=== PATIENT | female | born 1965 ===

== ENCOUNTER 2023-08-31 17:18 | Inpatient (IN) | payer MEDICARE, MEDICAID, SELFPAY ==
[2023-08-31 17:40] VITALS: BP 123/67; PULSE 85; RESP 18; TEMP 36.3; O2SAT 99
[2023-08-31 19:11] VITALS: BMI 38.2
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
[2023-08-31] MEDS: Acetaminophen 325 MG TABLET 650 MG PO (21:10)
[2023-08-31] MEDS: OLANZapine 7.5 MG TABLET PO (21:10)
[2023-08-31] MEDS: Divalproex Sodium 500 MG TABLET.DR PO (21:10)
[2023-08-31] MEDS: Melatonin 3 MG TABLET 6 MG PO (21:10)
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
[2023-09-01 08:00] VITALS: BP 104/58; PULSE 72; RESP 18; TEMP 36.2; O2SAT 96
[2023-09-01] MEDS: Divalproex Sodium 500 MG TABLET.DR PO ×2 (08:50→21:10)
[2023-09-01] MEDS: Omeprazole 20 MG CAPSULE.DR PO (08:50)
[2023-09-01] MEDS: Acetaminophen 325 MG TABLET 650 MG PO (10:25)
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
--- NOTE | 2023-09-01 11:29 | MHC.CLN ---
NUTRITION PATIENT REPORTED DECREASED APPETITE. REPORTS WEIGHT HAD BEEN 216#, NOW 195#. WEIGHT LOSS -21#, 9.7%. UNSURE OF TIMEFRAME. BMI=38.2, OBESE. FOLLOW WEEKLY FOR INTAKE.
--- NOTE | 2023-09-01 12:01 | PC.NURSE ---
Patient is having mod-severe sciatica in her right leg not relived by Tylenol. Home med list reviewed and missing medication list sent to deonna Soni MAT INSPECTOR who will see patient later today.
[2023-09-01] MEDS: Ibuprofen 400 MG TABLET PO ×2 (13:12→21:13)
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
[2023-09-01 18:00] VITALS: BP 115/55; PULSE 84; RESP 18; TEMP 36.6; O2SAT 99
[2023-09-01] MEDS: Melatonin 3 MG TABLET 6 MG PO (21:11)
[2023-09-01] MEDS: OLANZapine 10 MG TABLET PO (21:11)
--- NOTE | 2023-09-01 21:35 | HO.PSYCHPN ---
Subjective Subjective Date of Service: 09/01/23 Reason For Visit: decompensation Diagnostics Vital Signs (24Hr): Vital Signs - 24 hr 09/01/23 08:00 09/01/23 18:00 Temperature 97.2 F 97.8 F Pulse Rate 72 84 Respiratory Rate 18 18 Blood Pressure 104/58 L 115/55 L Pulse Oximetry 96 99 Oxygen Delivery Method Room Air Room Air BMI result Body Mass Index 38.2 Medications Medications Current Medications Acetaminophen (Acetaminophen 325 Mg Tablet) 650 mg PO Q6H PRN PRN Reason: Headache/Pain Mild Scale (1-3) Last Admin: 09/01/23 10:25 Dose: 650 mg Al Hydroxide/Mg Hydroxide (Magnesium Hydrox/Alum Hydrox 30 Ml Oral.Susp) 30 ml PO Q6H PRN PRN Reason: Heartburn/Nausea Divalproex Sodium (Divalproex Sodium 500 Mg Tablet.) 500 mg PO BID [facility] Last Admin: 09/01/23 21:10 Dose: 500 mg Hydroxyzine HCl (Hydroxyzine Hcl 25 Mg Tablet) 25 mg PO Q6H PRN PRN Reason: Anxiety Ibuprofen (Ibuprofen 400 Mg Tablet) 400 mg PO Q6H PRN PRN Reason: Pain, Moderate(Pain Scale 4-6) Last Admin: 09/01/23 21:13 Dose: 400 mg Magnesium Hydroxide (Milk Of Magnesia 30 Ml Oral.Susp) 30 ml PO DAILY PRN PRN Reason: Constipation Melatonin (Melatonin 3 Mg Tablet) 6 mg PO BEDTIME PRN PRN Reason: insomnia Last Admin: 09/01/23 21:11 Dose: 6 mg Olanzapine (Olanzapine 2.5 Mg Tablet) 2.5 mg PO DAILY PRN PRN Reason: agitation Olanzapine (Olanzapine 10 Mg Tablet) 10 mg PO BEDTIME [facility] Last Admin: 09/01/23 21:11 Dose: 10 mg Omeprazole (Omeprazole 20 Mg Capsule.) 20 mg PO DAILY [facility] Last Admin: 09/01/23 08:50 Dose: 20 mg Trazodone HCl (Trazodone Hcl 50 Mg Tablet) 50 mg PO BEDTIME MRX1 PRN PRN Reason: Insomnia Allergies Allergies Allergy/AdvReac Type Severity Reaction Status Date / Time No Known Allergies Allergy Verified 08/31/23 17:55 Assessment & Plan Assessment & Plan (1) Schizo-affective psychosis: Status: Acute Code(s): F25.9 - Schizoaffective disorder, unspecified Plan 58 year old female with history of sciatica, GERD, anxiety, chronic back pain and Schizoaffective disorder here with decompensation of schizoaffective disorder Plan; CV 15 min checks continue zyprexa and increase to 10mg at bedtime stop risperdal 2mg BID(pt was not taking consistently at home) hold cogentin as may not need it labs med consult collect collateral discharge planning with team Time Spent With Patient Time: Total time managing care of this patient today ____ minutes.
[2023-09-02] MEDS: hydrOXYzine HCL 25 MG TABLET PO (04:03)
[2023-09-02 07:04] LABS: Estimated Average Glucose 100 mg/dL; Hemoglobin A1c % 5.1 % (<6.0)
[2023-09-02 07:14] LABS: Alanine Aminotransferase 24 U/L (0-31); Albumin Level 3.5 g/dL (3.5-5.0); Alkaline Phosphatase 62 U/L (39-117); Anion Gap 13 (12-20); Aspartate Amino Transferase 22 U/L (5-31); Bilirubin Total 0.2 mg/dL (0.0-1.0); Blood Urea Nitrogen 13 mg/dL (9-16); Carbon Dioxide 28 mmol/L (22-29); Chloride 109 mmol/L (96-108); Cholesterol 183 mg/dL (<200); Creatinine Clr Calc Pharmacy 83.6; Estimated Glomerular Filt Rate > 60; Glucose Fasting 86 mg/dL (60-99); HDL Cholesterol 54 mg/dL (>40); LDL Cholesterol Calculated 119 mg/dL (<100); Potassium 4.5 mmol/L (3.3-5.1); Sodium 145 mmol/L (135-145); Total Protein 6.5 g/dL (6.5-8.0); Triglycerides 53 mg/dL (<150)
[2023-09-02 08:00] VITALS: BP 135/67; PULSE 95; RESP 18; TEMP 36.7; O2SAT 97
[2023-09-02] MEDS: Omeprazole 20 MG CAPSULE.DR PO (08:35)
[2023-09-02] MEDS: Divalproex Sodium 500 MG TABLET.DR PO ×2 (08:36→20:26)
--- NOTE | 2023-09-02 10:52 | P.PNPSI_ITS ---
Subjective Subjective Date of Service: 09/02/23 Reason For Visit: decompensation Subjective Notes: Conditional Voluntary Interim History: met with patient. Discussed with Nursing. Pleasant. Interviewed with [facility] #[id number]. reports feeling comfortable on the unit and that staff are very helpful. Sleeping well. Denied depression. Denies feeling paranoid or scared. We discussed medications and names of same as she noted they were different compared to community. Aware she was in hospital, day of the week and being the around August. Medication Compliance: Yes Side effects from medications: No Attending Groups: Yes Review of Systems Acute medical concerns: No Medical Review of Systems: unchanged Review of Systems: Hospitalist note 08/31: presently has no acute medical issues, continue protonix for GERD, Motrin PRN for pain, and continue Present Psychiatric care. Will follow on PRN basis Review of Systems Review of Systems Unremarkable Mental Status Exam Mental Status Exam Patient Appearance: Well Grooomed and Appropriate Patient Orientation: Person, Time and Situation Level of Consciousness: Awake Patient Behavior: Appropriate and Good Eye Contact Mood Description: Calm Affect Description: Calm Patient Cognition Impaired: No Ability to Follow Directions: Good Speech Pattern: Clear Memory Description: Intact Hallucinations: None Delusions: Not Present Thought Process: Goal Oriented Thought Content: positive for Goal Oriented Judgement: Fair Diagnostics Vital Signs (24Hr): Vital Signs - 24 hr 09/01/23 18:00 09/02/23 08:00 Temperature 97.8 F 98.1 F Pulse Rate 84 95 Respiratory Rate 18 18 Blood Pressure 115/55 L 135/67 Pulse Oximetry 99 97 Oxygen Delivery Method Room Air Room Air BMI result Body Mass Index 38.2 Labs 09/02/23 06:43 Labs: Laboratory Results - last 48 hr 09/02/23 06:43 Sodium 145 Potassium 4.5 Chloride 109 H Carbon Dioxide 28 Anion Gap 13 BUN 13 Creatinine 0.71 Estim Creat Clear Calc 83.6 Estimated GFR > 60 Fasting Glucose 86 Estimat Average Glucose 100 Hemoglobin A1c % 5.1 Calcium 9.0 Total Bilirubin 0.2 AST 22 ALT 24 Alkaline Phosphatase 62 Total Protein 6.5 Albumin 3.5 Triglycerides 53 Cholesterol 183 LDL Cholesterol, Calc 119 H HDL Cholesterol 54 Medications Medications Current Medications Acetaminophen (Acetaminophen 325 Mg Tablet) 650 mg PO Q6H PRN PRN Reason: Headache/Pain Mild Scale (1-3) Last Admin: 09/01/23 10:25 Dose: 650 mg Al Hydroxide/Mg Hydroxide (Magnesium Hydrox/Alum Hydrox 30 Ml Oral.Susp) 30 ml PO Q6H PRN PRN Reason: Heartburn/Nausea Divalproex Sodium (Divalproex Sodium 500 Mg Tablet.Dr) 500 mg PO BID [facility] Last Admin: 09/02/23 08:36 Dose: 500 mg Hydroxyzine HCl (Hydroxyzine Hcl 25 Mg Tablet) 25 mg PO Q6H PRN PRN Reason: Anxiety Last Admin: 09/02/23 04:03 Dose: 25 mg Ibuprofen (Ibuprofen 400 Mg Tablet) 400 mg PO Q6H PRN PRN Reason: Pain, Moderate(Pain Scale 4-6) Last Admin: 09/01/23 21:13 Dose: 400 mg Magnesium Hydroxide (Milk Of Magnesia 30 Ml Oral.Susp) 30 ml PO DAILY PRN PRN Reason: Constipation Melatonin (Melatonin 3 Mg Tablet) 6 mg PO BEDTIME PRN PRN Reason: insomnia Last Admin: 09/01/23 21:11 Dose: 6 mg Olanzapine (Olanzapine 2.5 Mg Tablet) 2.5 mg PO DAILY PRN PRN Reason: agitation Olanzapine (Olanzapine 10 Mg Tablet) 10 mg PO BEDTIME [facility] Last Admin: 09/01/23 21:11 Dose: 10 mg Omeprazole (Omeprazole 20 Mg Capsule.) 20 mg PO DAILY [facility] Last Admin: 09/02/23 08:35 Dose: 20 mg Trazodone HCl (Trazodone Hcl 50 Mg Tablet) 50 mg PO BEDTIME MRX1 PRN PRN Reason: Insomnia Allergies Allergies Allergy/AdvReac Type Severity Reaction Status Date / Time No Known Allergies Allergy Verified 08/31/23 17:55 Assessment & Plan Assessment & Plan (1) Schizo-affective psychosis: Status: Acute Code(s): F25.9 - Schizoaffective disorder, unspecified Plan 58 year old female with history of sciatica, GERD, anxiety, chronic back pain and Schizoaffective disorder here with decompensation of schizoaffective disorder Plan; CV 15 min checks continue zyprexa and increase to 10mg at bedtime stop risperdal 2mg BID(pt was not taking consistently at home) hold cogentin as may not need it 09/01: no changes to current plan Reason for continued inpatient stay Substantial Risk for: harm to others Time Spent With Patient Time: Total time managing care of this patient today ____ minutes.
[2023-09-02] MEDS: Ibuprofen 400 MG TABLET PO ×2 (13:59→20:26)
[2023-09-02 18:00] VITALS: BP 125/57; PULSE 88; RESP 18; TEMP 36.3; O2SAT 95
[2023-09-02] MEDS: Melatonin 3 MG TABLET 6 MG PO (20:25)
[2023-09-02] MEDS: OLANZapine 10 MG TABLET PO (20:26)
[2023-09-02] MEDS: traZODone HCL 50 MG TABLET PO (20:26)
[2023-09-03] MEDS: Omeprazole 20 MG CAPSULE.DR PO (08:41)
[2023-09-03] MEDS: Divalproex Sodium 500 MG TABLET.DR PO ×2 (08:41→21:06)
[2023-09-03 08:42] VITALS: BP 141/56; PULSE 99; RESP 18; TEMP 36.4; O2SAT 94
[2023-09-03] MEDS: Ibuprofen 400 MG TABLET PO (09:56)
--- NOTE | 2023-09-03 14:09 | HO.PSYCHPN ---
Subjective Subjective Date of Service: 09/03/23 Reason For Visit: decompensation Subjective Notes: Conditional Voluntary Interim History: met with patient. Discussed with Nursing. Pleasant. No issues. [facility] #[id number]. Still comfortable on the unit and that staff are very helpful. Sleeping well. Denied depression. Denies feeling paranoid or scared. No overt cognitive issues. Unsure what she will do if she is unable to stay with family maybe i will get a job or something . Medication Compliance: Yes Side effects from medications: No Attending Groups: Yes Review of Systems Acute medical concerns: No Review of Systems Review of Systems Unremarkable Mental Status Exam Mental Status Exam Patient Appearance: Well Grooomed and Appropriate Patient Orientation: Person, Time and Situation Level of Consciousness: Awake Patient Behavior: Appropriate and Good Eye Contact Mood Description: Calm Affect Description: Calm Patient Cognition Impaired: No Ability to Follow Directions: Good Speech Pattern: Clear Memory Description: Intact Diagnostics Vital Signs (24Hr): Vital Signs - 24 hr 09/02/23 18:00 09/03/23 08:42 Temperature 97.4 F 97.5 F Pulse Rate 88 99 Respiratory Rate 18 18 Blood Pressure 125/57 L 141/56 H Pulse Oximetry 95 94 Oxygen Delivery Method Room Air Room Air BMI result Body Mass Index 38.2 Labs 09/02/23 06:43 Labs: Laboratory Results - last 48 hr 09/02/23 06:43 Sodium 145 Potassium 4.5 Chloride 109 H Carbon Dioxide 28 Anion Gap 13 BUN 13 Creatinine 0.71 Estim Creat Clear Calc 83.6 Estimated GFR > 60 Fasting Glucose 86 Estimat Average Glucose 100 Hemoglobin A1c % 5.1 Calcium 9.0 Total Bilirubin 0.2 AST 22 ALT 24 Alkaline Phosphatase 62 Total Protein 6.5 Albumin 3.5 Triglycerides 53 Cholesterol 183 LDL Cholesterol, Calc 119 H HDL Cholesterol 54 Medications Medications Current Medications Acetaminophen (Acetaminophen 325 Mg Tablet) 650 mg PO Q6H PRN PRN Reason: Headache/Pain Mild Scale (1-3) Last Admin: 09/01/23 10:25 Dose: 650 mg Al Hydroxide/Mg Hydroxide (Magnesium Hydrox/Alum Hydrox 30 Ml Oral.Susp) 30 ml PO Q6H PRN PRN Reason: Heartburn/Nausea Divalproex Sodium (Divalproex Sodium 500 Mg Tablet.) 500 mg PO BID [facility] Last Admin: 09/03/23 08:41 Dose: 500 mg Hydroxyzine HCl (Hydroxyzine Hcl 25 Mg Tablet) 25 mg PO Q6H PRN PRN Reason: Anxiety Last Admin: 09/02/23 04:03 Dose: 25 mg Ibuprofen (Ibuprofen 400 Mg Tablet) 400 mg PO Q6H PRN PRN Reason: Pain, Moderate(Pain Scale 4-6) Last Admin: 09/03/23 09:56 Dose: 400 mg Magnesium Hydroxide (Milk Of Magnesia 30 Ml Oral.Susp) 30 ml PO DAILY PRN PRN Reason: Constipation Melatonin (Melatonin 3 Mg Tablet) 6 mg PO BEDTIME PRN PRN Reason: insomnia Last Admin: 09/02/23 20:25 Dose: 6 mg Olanzapine (Olanzapine 2.5 Mg Tablet) 2.5 mg PO DAILY PRN PRN Reason: agitation Olanzapine (Olanzapine 10 Mg Tablet) 10 mg PO BEDTIME [facility] Last Admin: 09/02/23 20:26 Dose: 10 mg Omeprazole (Omeprazole 20 Mg Capsule.Dr) 20 mg PO DAILY [facility] Last Admin: 09/03/23 08:41 Dose: 20 mg Trazodone HCl (Trazodone Hcl 50 Mg Tablet) 50 mg PO BEDTIME MRX1 PRN PRN Reason: Insomnia Last Admin: 09/02/23 20:26 Dose: 50 mg Allergies Allergies Allergy/AdvReac Type Severity Reaction Status Date / Time No Known Allergies Allergy Verified 08/31/23 17:55 Assessment & Plan Assessment & Plan (1) Schizo-affective psychosis: Status: Acute Code(s): F25.9 - Schizoaffective disorder, unspecified Plan 58 year old female with history of sciatica, GERD, anxiety, chronic back pain and Schizoaffective disorder here with decompensation of schizoaffective disorder Plan; CV 15 min checks continue zyprexa and increase to 10mg at bedtime stop risperdal 2mg BID(pt was not taking consistently at home) hold cogentin as may not need it 09/01: no changes to current plan 09/02: stable. no changes. Team to clarify supports and dispo options Reason for continued inpatient stay Substantial Risk for: rapid decompensation Time Spent With Patient Time: Total time managing care of this patient today ____ minutes.
[2023-09-03 18:00] VITALS: BP 138/80; PULSE 88; RESP 18; TEMP 36.2; O2SAT 97
[2023-09-03] MEDS: OLANZapine 10 MG TABLET PO (21:06)
[2023-09-04 08:00] VITALS: BP 135/58; PULSE 108; RESP 18; TEMP 35.9; O2SAT 98
[2023-09-04] MEDS: Ibuprofen 400 MG TABLET PO ×2 (08:36→18:49)
[2023-09-04] MEDS: Divalproex Sodium 500 MG TABLET.DR PO ×2 (08:36→20:30)
[2023-09-04] MEDS: Omeprazole 20 MG CAPSULE.DR PO (08:36)
--- NOTE | 2023-09-04 10:15 | HO.PSYCHPN ---
Subjective Subjective Date of Service: 09/04/23 Reason For Visit: decompensation Subjective Notes: Conditional Voluntary Interim History: met with patient. Discussed with Nursing. Pleasant. No issues. Pt remains calm and in good behavioral control; no side effects; Sleeping betterl. Denied depression. Denies feeling paranoid or scared. No overt cognitive issues. Medication Compliance: Yes Side effects from medications: No Attending Groups: Intermittent Review of Systems Acute medical concerns: No Review of Systems Review of Systems Unremarkable Yes all other systems are reviewed and are negative Mental Status Exam Mental Status Exam Patient Appearance: Well Grooomed and Appropriate Patient Orientation: Person, Time and Situation Level of Consciousness: Awake Patient Behavior: Appropriate and Good Eye Contact Mood Description: Calm Affect Description: Calm Patient Cognition Impaired: No Ability to Follow Directions: Good Speech Pattern: Clear Memory Description: Intact Hallucinations: None Delusions: Not Present Thought Process: Intact and Goal Oriented Thought Content: positive for Intact and positive for Goal Oriented Judgement: Fair Diagnostics Vital Signs (24Hr): Vital Signs - 24 hr 09/03/23 18:00 09/04/23 08:00 Temperature 97.2 F 96.6 F L Pulse Rate 88 108 H Respiratory Rate 18 18 Blood Pressure 138/80 135/58 L Pulse Oximetry 97 98 Oxygen Delivery Method Room Air Room Air BMI result Body Mass Index 38.2 Labs 09/02/23 06:43 Medications Medications Current Medications Acetaminophen (Acetaminophen 325 Mg Tablet) 650 mg PO Q6H PRN PRN Reason: Headache/Pain Mild Scale (1-3) Last Admin: 09/01/23 10:25 Dose: 650 mg Al Hydroxide/Mg Hydroxide (Magnesium Hydrox/Alum Hydrox 30 Ml Oral.Susp) 30 ml PO Q6H PRN PRN Reason: Heartburn/Nausea Divalproex Sodium (Divalproex Sodium 500 Mg Tablet.Dr) 500 mg PO BID [facility] Last Admin: 09/04/23 08:36 Dose: 500 mg Hydroxyzine HCl (Hydroxyzine Hcl 25 Mg Tablet) 25 mg PO Q6H PRN PRN Reason: Anxiety Last Admin: 09/02/23 04:03 Dose: 25 mg Ibuprofen (Ibuprofen 400 Mg Tablet) 400 mg PO Q6H PRN PRN Reason: Pain, Moderate(Pain Scale 4-6) Last Admin: 09/04/23 08:36 Dose: 400 mg Magnesium Hydroxide (Milk Of Magnesia 30 Ml Oral.Susp) 30 ml PO DAILY PRN PRN Reason: Constipation Melatonin (Melatonin 3 Mg Tablet) 6 mg PO BEDTIME PRN PRN Reason: insomnia Last Admin: 09/02/23 20:25 Dose: 6 mg Olanzapine (Olanzapine 2.5 Mg Tablet) 2.5 mg PO DAILY PRN PRN Reason: agitation Olanzapine (Olanzapine 10 Mg Tablet) 10 mg PO BEDTIME [facility] Last Admin: 09/03/23 21:06 Dose: 10 mg Omeprazole (Omeprazole 20 Mg Capsule.Dr) 20 mg PO DAILY [facility] Last Admin: 09/04/23 08:36 Dose: 20 mg Trazodone HCl (Trazodone Hcl 50 Mg Tablet) 50 mg PO BEDTIME MRX1 PRN PRN Reason: Insomnia Last Admin: 09/02/23 20:26 Dose: 50 mg Allergies Allergies Allergy/AdvReac Type Severity Reaction Status Date / Time No Known Allergies Allergy Verified 08/31/23 17:55 Assessment & Plan Assessment & Plan (1) Schizo-affective psychosis: Status: Acute Code(s): F25.9 - Schizoaffective disorder, unspecified Plan 58 year old female with history of sciatica, GERD, anxiety, chronic back pain and Schizoaffective disorder here with decompensation of schizoaffective disorder Plan; CV 15 min checks continue zyprexa and increase to 10mg at bedtime stop risperdal 2mg BID(pt was not taking consistently at home) hold cogentin as may not need it 09/01: no changes to current plan 09/02: stable. no changes. Team to clarify supports and dispo options 09/03 continue medications depakote level and CMP in am continue to work on discharge planning with team Patient educated on: diagnosis, medication risk/benefits and therapeutic strategies Informed Consent: understands and further education needed Reason for continued inpatient stay Substantial Risk for: harm to self, inability to function and rapid decompensation Time Spent With Patient Time: Total time managing care of this patient today ____ minutes.
[2023-09-04 18:00] VITALS: BP 123/66; PULSE 95; RESP 18; TEMP 36.4; O2SAT 98
[2023-09-04] MEDS: OLANZapine 10 MG TABLET PO (20:30)
[2023-09-05 07:40] VITALS: BP 129/79; PULSE 98; RESP 18; TEMP 36.6; O2SAT 96
[2023-09-05 07:52] LABS: Alanine Aminotransferase 18 U/L (0-31); Alkaline Phosphatase 70 U/L (39-117); Anion Gap 14 (12-20); Aspartate Amino Transferase 17 U/L (5-31); Bilirubin Total 0.4 mg/dL (0.0-1.0); Blood Urea Nitrogen 21 mg/dL (9-16); Calcium 9.4 mg/dL (8.4-10.2); Carbon Dioxide 30 mmol/L (22-29); Chloride 106 mmol/L (96-108); Estimated Glomerular Filt Rate > 60; Glucose Fasting 96 mg/dL (60-99); Potassium 4.7 mmol/L (3.3-5.1); Sodium 145 mmol/L (135-145); Total Protein 7.3 g/dL (6.5-8.0)
[2023-09-05 07:53] LABS: Valproate 70.9 mcg/mL (50.0-100.0)
[2023-09-05] MEDS: Ibuprofen 400 MG TABLET PO ×2 (08:34→21:32)
[2023-09-05] MEDS: Omeprazole 20 MG CAPSULE.DR PO (08:38)
[2023-09-05] MEDS: Divalproex Sodium 500 MG TABLET.DR PO ×2 (08:38→22:38)
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
--- NOTE | 2023-09-05 12:30 | PC.NURSE ---
Both 0900 medications did not scan in at time of administration at 0833 but were both given at that time, Depakote and Omeprazole.
--- NOTE | 2023-09-05 12:33 | PC.NURSE ---
Cathy Soni IRRIGATION SPECIALIST updated by this selling underwriter that patient is having intermittent left sided facial numbness and bilateral leg sciatica pain today. Vital signs are stable, hand grasps are equal, no facial dropping or speech difficulties. Patient ambulating independently on the unit with a steady gait. Motrin given prn for sciatica with good effect.
--- NOTE | 2023-09-05 16:01 | PC.NURSE ---
New order for Gabapentin 100mg PO bid obtained for patient to help with neuropathy.
[2023-09-05 18:00] VITALS: BP 120/66; PULSE 99; RESP 18; TEMP 36.8; O2SAT 99
[2023-09-05] MEDS: Gabapentin 100 MG CAPSULE PO (21:30)
[2023-09-05] MEDS: Melatonin 3 MG TABLET 6 MG PO (21:31)
[2023-09-05] MEDS: traZODone HCL 50 MG TABLET PO (21:31)
[2023-09-05] MEDS: OLANZapine 10 MG TABLET PO (21:32)
[2023-09-06 06:00] VITALS: BP 135/71; PULSE 96; RESP 17; TEMP 36.2; O2SAT 96
[2023-09-06] MEDS: Omeprazole 20 MG CAPSULE.DR PO (07:56)
[2023-09-06] MEDS: Divalproex Sodium 500 MG TABLET.DR PO ×2 (07:56→20:20)
[2023-09-06] MEDS: Gabapentin 100 MG CAPSULE PO ×2 (07:56→20:20)
[2023-09-06] MEDS: Ibuprofen 400 MG TABLET PO ×3 (07:57→22:30)
--- NOTE | 2023-09-06 12:02 | HO.PSYCHPN ---
Subjective Subjective Date of Service: 09/06/23 Reason For Visit: decompensation Subjective Notes: Conditional Voluntary Interim History: Reviewed with . active on [employer]. 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 Pt reports feeling good today; pt stated, I feel like I'm ready to go home. I'm not depressed. I'm sleeping and eating okay . denies SI/HI/VH/AH. Pt reports she will reach out to nursing staff if she needs anything. Medication Compliance: Yes Side effects from medications: No Review of Systems Constitutional: Reports as per HPI Eyes: Reports as per HPI Reports as per HPI Cardiovascular: Reports as per HPI Respiratory: Reports as per HPI Gastrointestinal: Reports as per HPI Genitourinary: Reports as per HPI Musculoskeletal: Reports as per HPI Skin/Breast: Reports as per HPI Reports as per HPI Psychiatric: Reports as per HPI Endocrine: Reports as per HPI Hematologic/Lymphatic: Reports as per HPI Allergic/Immunologic: Reports as per HPI Mental Status Exam Mental Status Exam Narrative: Pt is alert and oriented; behavior is cooperative, friendly and calm; dressed in casual attire; mood is described as good ; eye contact appropriate; Speech is normal rate, volume and prosody and not pressured; thought process is organized; Thought content is on discharge; denies SI/HI/VH/AH. Diagnostics Vital Signs (24Hr): Vital Signs - 24 hr 09/05/23 18:00 09/06/23 06:00 Temperature 98.2 F 97.2 F Pulse Rate 99 96 Respiratory Rate 18 17 Blood Pressure 120/66 135/71 Pulse Oximetry 99 96 Oxygen Delivery Method Room Air Room Air BMI result Body Mass Index 38.2 Labs 09/05/23 07:16 Labs: Laboratory Results - last 48 hr 09/05/23 07:16 Sodium 145 Potassium 4.7 Chloride 106 Carbon Dioxide 30 H Anion Gap 14 BUN 21 H Creatinine 0.78 Estim Creat Clear Calc 76.0 Estimated GFR > 60 Fasting Glucose 96 Calcium 9.4 Total Bilirubin 0.4 AST 17 ALT 18 Alkaline Phosphatase 70 Total Protein 7.3 Albumin 4.0 Valproic Acid 70.9 Medications Medications Current Medications Acetaminophen (Acetaminophen 325 Mg Tablet) 650 mg PO Q6H PRN PRN Reason: Headache/Pain Mild Scale (1-3) Last Admin: 09/01/23 10:25 Dose: 650 mg Al Hydroxide/Mg Hydroxide (Magnesium Hydrox/Alum Hydrox 30 Ml Oral.Susp) 30 ml PO Q6H PRN PRN Reason: Heartburn/Nausea Divalproex Sodium (Divalproex Sodium 500 Mg Tablet.) 500 mg PO BID [facility] Last Admin: 09/06/23 07:56 Dose: 500 mg Gabapentin (Gabapentin 100 Mg Capsule) 100 mg PO BID [facility] Last Admin: 09/06/23 07:56 Dose: 100 mg Hydroxyzine HCl (Hydroxyzine Hcl 25 Mg Tablet) 25 mg PO Q6H PRN PRN Reason: Anxiety Last Admin: 09/02/23 04:03 Dose: 25 mg Ibuprofen (Ibuprofen 400 Mg Tablet) 400 mg PO Q6H PRN PRN Reason: Pain, Moderate(Pain Scale 4-6) Last Admin: 09/06/23 07:57 Dose: 400 mg Magnesium Hydroxide (Milk Of Magnesia 30 Ml Oral.Susp) 30 ml PO DAILY PRN PRN Reason: Constipation Melatonin (Melatonin 3 Mg Tablet) 6 mg PO BEDTIME PRN PRN Reason: insomnia Last Admin: 09/05/23 21:31 Dose: 6 mg Olanzapine (Olanzapine 2.5 Mg Tablet) 2.5 mg PO DAILY PRN PRN Reason: agitation Olanzapine (Olanzapine 10 Mg Tablet) 10 mg PO BEDTIME [facility] Last Admin: 09/05/23 21:32 Dose: 10 mg Omeprazole (Omeprazole 20 Mg Capsule.) 20 mg PO DAILY [facility] Last Admin: 09/06/23 07:56 Dose: 20 mg Trazodone HCl (Trazodone Hcl 50 Mg Tablet) 50 mg PO BEDTIME MRX1 PRN PRN Reason: Insomnia Last Admin: 09/05/23 21:31 Dose: 50 mg Allergies Allergies Allergy/AdvReac Type Severity Reaction Status Date / Time No Known Allergies Allergy Verified 08/31/23 17:55 Assessment & Plan Assessment & Plan (1) Schizo-affective psychosis: Status: Acute Code(s): F25.9 - Schizoaffective disorder, unspecified Plan 58 year old female with history of sciatica, GERD, anxiety, chronic back pain and Schizoaffective disorder here with decompensation of schizoaffective disorder Plan; CV 15 min checks continue zyprexa and increase to 10mg at bedtime stop risperdal 2mg BID(pt was not taking consistently at home) hold cogentin as may not need it 09/01: no changes to current plan 3/10: stable. no changes. Team to clarify supports and dispo options 09/03 continue medications depakote level and CMP in am continue to work on discharge planning with team 09/05/23 add gabapentin for both anxiety and pain 09/05: continue current tx plan. Patient educated on: diagnosis and medication risk/benefits Informed Consent: understands Reason for continued inpatient stay Substantial Risk for: med/psych decompensation Time Spent With Patient Time: Total time managing care of this patient today _20___ minutes.
--- NOTE | 2023-09-06 14:16 | MHC.CLN ---
F/U APPEARS TO BE EATING WELL WITH INTAKE USUALLY >50% OF MEALS. NO NUTRITIONAL FOLLOW UP. RD AVAILABLE NEEDED.
[2023-09-06 18:00] VITALS: BP 124/53; PULSE 92; RESP 18; TEMP 36.1; O2SAT 97
[2023-09-06] MEDS: guaiFENesin 100 MG/5 ML LIQUID PO (18:50)
[2023-09-06] MEDS: OLANZapine 10 MG TABLET PO (20:20)
[2023-09-06] MEDS: traZODone HCL 50 MG TABLET PO (20:20)
[2023-09-06] MEDS: Melatonin 3 MG TABLET 6 MG PO (22:29)
[2023-09-07] MEDS: guaiFENesin 100 MG/5 ML LIQUID PO ×2 (05:38→21:21)
[2023-09-07 07:00] VITALS: BMI 39.8
[2023-09-07 07:45] VITALS: BP 130/70; PULSE 86; RESP 16; TEMP 36.6; O2SAT 98
[2023-09-07] MEDS: Divalproex Sodium 500 MG TABLET.DR PO ×2 (08:09→21:23)
[2023-09-07] MEDS: Omeprazole 20 MG CAPSULE.DR PO (08:09)
[2023-09-07] MEDS: Gabapentin 100 MG CAPSULE PO ×2 (08:09→21:23)
--- NOTE | 2023-09-07 12:59 | HO.PSYCHPN ---
Subjective Subjective Date of Service: 09/07/23 Reason For Visit: decompensation Subjective Notes: Conditional Voluntary Interim History: Reviewed with . active on [employer]. 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 Pt reports feeling good today; pt stated, I feel at peace. I feel like I'm ready to go home . denies SI/HI/VH/AH. Medication Compliance: Yes Side effects from medications: No Review of Systems Constitutional: Reports as per HPI Eyes: Reports as per HPI Reports as per HPI Cardiovascular: Reports as per HPI Respiratory: Reports as per HPI Gastrointestinal: Reports as per HPI Musculoskeletal: Reports as per HPI Skin/Breast: Reports as per HPI Reports as per HPI Psychiatric: Reports as per HPI Endocrine: Reports as per HPI Hematologic/Lymphatic: Reports as per HPI Allergic/Immunologic: Reports as per HPI Mental Status Exam Mental Status Exam Narrative: Pt is alert and oriented; behavior is cooperative, friendly and calm; dressed in casual attire; mood is described as good ; eye contact appropriate; Speech is normal rate, volume and prosody and not pressured; thought process is organized; Thought content is on discharge; denies SI/HI/VH/AH. Diagnostics Vital Signs (24Hr): Vital Signs - 24 hr 09/06/23 18:00 09/07/23 07:45 Temperature 97 F 97.8 F Pulse Rate 92 86 Respiratory Rate 18 16 Blood Pressure 124/53 L 130/70 Pulse Oximetry 97 98 Oxygen Delivery Method Room Air Room Air BMI result Body Mass Index 39.8 Labs 09/05/23 07:16 Medications Medications Current Medications Acetaminophen (Acetaminophen 325 Mg Tablet) 650 mg PO Q6H PRN PRN Reason: Headache/Pain Mild Scale (1-3) Last Admin: 09/01/23 10:25 Dose: 650 mg Al Hydroxide/Mg Hydroxide (Magnesium Hydrox/Alum Hydrox 30 Ml Oral.Susp) 30 ml PO Q6H PRN PRN Reason: Heartburn/Nausea Divalproex Sodium (Divalproex Sodium 500 Mg Tablet.) 500 mg PO BID [facility] Last Admin: 09/07/23 08:09 Dose: 500 mg Gabapentin (Gabapentin 100 Mg Capsule) 100 mg PO BID [facility] Last Admin: 09/07/23 08:09 Dose: 100 mg Guaifenesin (Guaifenesin 100 Mg/5 Ml Liquid) 5 ml PO Q4H PRN PRN Reason: cough Last Admin: 09/07/23 05:38 Dose: 5 ml Hydroxyzine HCl (Hydroxyzine Hcl 25 Mg Tablet) 25 mg PO Q6H PRN PRN Reason: Anxiety Last Admin: 09/02/23 04:03 Dose: 25 mg Ibuprofen (Ibuprofen 400 Mg Tablet) 400 mg PO Q6H PRN PRN Reason: Pain, Moderate(Pain Scale 4-6) Last Admin: 09/06/23 22:30 Dose: 400 mg Magnesium Hydroxide (Milk Of Magnesia 30 Ml Oral.Susp) 30 ml PO DAILY PRN PRN Reason: Constipation Melatonin (Melatonin 3 Mg Tablet) 6 mg PO BEDTIME PRN PRN Reason: insomnia Last Admin: 09/06/23 22:29 Dose: 6 mg Olanzapine (Olanzapine 2.5 Mg Tablet) 2.5 mg PO DAILY PRN PRN Reason: agitation Olanzapine (Olanzapine 10 Mg Tablet) 10 mg PO BEDTIME [facility] Last Admin: 09/06/23 20:20 Dose: 10 mg Omeprazole (Omeprazole 20 Mg Capsule.Dr) 20 mg PO DAILY [facility] Last Admin: 09/07/23 08:09 Dose: 20 mg Trazodone HCl (Trazodone Hcl 50 Mg Tablet) 50 mg PO BEDTIME MRX1 PRN PRN Reason: Insomnia Last Admin: 09/06/23 20:20 Dose: 50 mg Allergies Allergies Allergy/AdvReac Type Severity Reaction Status Date / Time No Known Allergies Allergy Verified 08/31/23 17:55 Assessment & Plan Assessment & Plan (1) Schizo-affective psychosis: Status: Acute Code(s): F25.9 - Schizoaffective disorder, unspecified Plan 58 year old female with history of sciatica, GERD, anxiety, chronic back pain and Schizoaffective disorder here with decompensation of schizoaffective disorder Plan; CV 15 min checks continue zyprexa and increase to 10mg at bedtime stop risperdal 2mg BID(pt was not taking consistently at home) hold cogentin as may not need it 09/01: no changes to current plan 09/02: stable. no changes. Team to clarify supports and dispo options 09/03 continue medications depakote level and CMP in am continue to work on discharge planning with team 09/05/23 add gabapentin for both anxiety and pain 09/05: continue current tx plan. 03/14: continue tx plan. Patient educated on: diagnosis and medication risk/benefits Informed Consent: understands Reason for continued inpatient stay Substantial Risk for: med/psych decompensation Time Spent With Patient Time: Total time managing care of this patient today _20___ minutes.
[2023-09-07 18:00] VITALS: BP 140/97; PULSE 95; RESP 18; TEMP 36.5; O2SAT 96
[2023-09-07] MEDS: Ibuprofen 400 MG TABLET PO (21:21)
[2023-09-07] MEDS: Melatonin 3 MG TABLET 6 MG PO (21:22)
[2023-09-07] MEDS: traZODone HCL 50 MG TABLET PO (21:23)
[2023-09-07] MEDS: OLANZapine 10 MG TABLET PO (21:23)
[2023-09-08 09:45] VITALS: BP 139/66; PULSE 100; RESP 16; TEMP 36.4; O2SAT 93
[2023-09-08] MEDS: Omeprazole 20 MG CAPSULE.DR PO (09:47)
[2023-09-08] MEDS: Divalproex Sodium 500 MG TABLET.DR PO ×2 (09:47→20:55)
[2023-09-08] MEDS: Ibuprofen 400 MG TABLET PO (09:47)
[2023-09-08] MEDS: Gabapentin 100 MG CAPSULE PO (09:47)
--- NOTE | 2023-09-08 16:27 | HO.PSYCHPN ---
Subjective Subjective Date of Service: 09/08/23 Reason For Visit: decompensation Subjective Notes: Conditional Voluntary Interim History: Pt reports sciatic pain- reports minimal effect with gabapentin- we discussed increasing dose. Also discussed for break through pain use toradol temporarily. She denies SI/HI. She reports her mood is better. No psychosis. She is looking forward to return home soon. Pt may benefit from aricept to slow down progression of dementia. Review of Systems Review of Systems Unremarkable Yes all other systems are reviewed and are negative Constitutional: Reports as per HPI Eyes: Reports as per HPI Reports as per HPI Cardiovascular: Reports as per HPI Respiratory: Reports as per HPI Gastrointestinal: Reports as per HPI Musculoskeletal: Reports as per HPI Skin/Breast: Reports as per HPI Reports as per HPI Psychiatric: Reports as per HPI Endocrine: Reports as per HPI Hematologic/Lymphatic: Reports as per HPI Allergic/Immunologic: Reports as per HPI Mental Status Exam Mental Status Exam Patient Appearance: Well Grooomed and Appropriate Patient Orientation: Person, Time and Situation Level of Consciousness: Awake Patient Behavior: Appropriate and Good Eye Contact Mood Description: Calm Affect Description: Calm Patient Cognition Impaired: No Ability to Follow Directions: Good Speech Pattern: Clear Memory Description: Intact Diagnostics Vital Signs (24Hr): Vital Signs - 24 hr 09/07/23 18:00 09/08/23 09:45 Temperature 97.7 F 97.5 F Pulse Rate 95 100 Respiratory Rate 18 16 Blood Pressure 140/97 H 139/66 Pulse Oximetry 96 93 Oxygen Delivery Method Room Air Room Air BMI result Body Mass Index 39.8 Labs 09/05/23 07:16 Medications Medications Current Medications Acetaminophen (Acetaminophen 325 Mg Tablet) 650 mg PO Q6H PRN PRN Reason: Headache/Pain Mild Scale (1-3) Last Admin: 09/01/23 10:25 Dose: 650 mg Al Hydroxide/Mg Hydroxide (Magnesium Hydrox/Alum Hydrox 30 Ml Oral.Susp) 30 ml PO Q6H PRN PRN Reason: Heartburn/Nausea Divalproex Sodium (Divalproex Sodium 500 Mg Tablet.Dr) 500 mg PO BID [facility] Last Admin: 09/08/23 09:47 Dose: 500 mg Gabapentin (Gabapentin 100 Mg Capsule) 200 mg PO TID [facility] Guaifenesin (Guaifenesin 100 Mg/5 Ml Liquid) 5 ml PO Q4H PRN PRN Reason: cough Last Admin: 09/07/23 21:21 Dose: 5 ml Hydroxyzine HCl (Hydroxyzine Hcl 25 Mg Tablet) 25 mg PO Q6H PRN PRN Reason: Anxiety Last Admin: 09/02/23 04:03 Dose: 25 mg Ketorolac Tromethamine (Ketorolac Tromethamine 15 Mg/Ml Vial) 15 mg IM Q6H PRN PRN Reason: sciatic pain Magnesium Hydroxide (Milk Of Magnesia 30 Ml Oral.Susp) 30 ml PO DAILY PRN PRN Reason: Constipation Melatonin (Melatonin 3 Mg Tablet) 6 mg PO BEDTIME PRN PRN Reason: insomnia Last Admin: 09/07/23 21:22 Dose: 6 mg Olanzapine (Olanzapine 2.5 Mg Tablet) 2.5 mg PO DAILY PRN PRN Reason: agitation Olanzapine (Olanzapine 10 Mg Tablet) 10 mg PO BEDTIME [facility] Last Admin: 09/07/23 21:23 Dose: 10 mg Omeprazole (Omeprazole 20 Mg Capsule.Dr) 20 mg PO DAILY [facility] Last Admin: 09/08/23 09:47 Dose: 20 mg Trazodone HCl (Trazodone Hcl 50 Mg Tablet) 50 mg PO BEDTIME MRX1 PRN PRN Reason: Insomnia Last Admin: 09/07/23 21:23 Dose: 50 mg Allergies Allergies Allergy/AdvReac Type Severity Reaction Status Date / Time No Known Allergies Allergy Verified 08/31/23 17:55 Assessment & Plan Assessment & Plan (1) Schizo-affective psychosis: Status: Acute Code(s): F25.9 - Schizoaffective disorder, unspecified Plan 58 year old female with history of sciatica, GERD, anxiety, chronic back pain and Schizoaffective disorder here with decompensation of schizoaffective disorder Plan; CV 15 min checks continue zyprexa and increase to 10mg at bedtime stop risperdal 2mg BID(pt was not taking consistently at home) hold cogentin as may not need it 09/01: no changes to current plan 09/02: stable. no changes. Team to clarify supports and dispo options 09/03 continue medications depakote level and CMP in am continue to work on discharge planning with team 09/05/23 add gabapentin for both anxiety and pain 09/05: continue current tx plan. 09/06: continue tx plan. 09/07 continue tx. toradol 15mg q6h IM. increase gabapentin 200mg po TID. d/c ibuprofen, since starting short term toradol. may benefit from aricept to slow down progression of dementia. Reason for continued inpatient stay Substantial Risk for: inability to function Time Spent With Patient Time: Total time managing care of this patient today ____ minutes.
[2023-09-08] MEDS: Ketorolac Tromethamine 15 MG/ML VIAL IM (20:52)
[2023-09-08] MEDS: Donepezil HCl 5 MG TABLET PO (20:55)
[2023-09-08] MEDS: Gabapentin 100 MG CAPSULE 200 MG PO (20:55)
[2023-09-08] MEDS: OLANZapine 10 MG TABLET PO (20:55)
[2023-09-08] MEDS: traZODone HCL 50 MG TABLET PO (20:55)
[2023-09-08 21:27] VITALS: BP 133/66; PULSE 89; RESP 16; TEMP 36.2; O2SAT 95
[2023-09-09 08:00] VITALS: BP 122/76; PULSE 93; RESP 18; TEMP 36.2; O2SAT 97
[2023-09-09] MEDS: Gabapentin 100 MG CAPSULE 200 MG PO ×3 (08:26→20:18)
[2023-09-09] MEDS: Omeprazole 20 MG CAPSULE.DR PO (08:27)
[2023-09-09] MEDS: Divalproex Sodium 500 MG TABLET.DR PO ×2 (08:27→20:18)
--- NOTE | 2023-09-09 10:45 | P.PNPSI_ITS ---
Subjective Subjective Date of Service: 09/09/23 Reason For Visit: decompensation Subjective Notes: Conditional Voluntary Interim History: Pt reports much less sciatic pain with gabapentin. She reports toradol was helpful but she still has pain at site of injection. She denies SI/HI. No overt psychosis. She is sleeping and eating well. No behavioral concerns. Medication Compliance: Yes Review of Systems Review of Systems Unremarkable Yes all other systems are reviewed and are negative Constitutional: Reports as per HPI Eyes: Reports as per HPI Reports as per HPI Cardiovascular: Reports as per HPI Respiratory: Reports as per HPI Gastrointestinal: Reports as per HPI Musculoskeletal: Reports as per HPI Skin/Breast: Reports as per HPI Reports as per HPI Psychiatric: Reports as per HPI Endocrine: Reports as per HPI Hematologic/Lymphatic: Reports as per HPI Allergic/Immunologic: Reports as per HPI Mental Status Exam Mental Status Exam Patient Appearance: Well Grooomed and Appropriate Patient Orientation: Person, Time and Situation Level of Consciousness: Awake Patient Behavior: Appropriate and Good Eye Contact Mood Description: Calm Affect Description: Calm Patient Cognition Impaired: No Ability to Follow Directions: Good Speech Pattern: Clear Memory Description: Intact Diagnostics Vital Signs (24Hr): Vital Signs - 24 hr 09/08/23 21:27 09/09/23 08:00 Temperature 97.2 F 97.2 F Pulse Rate 89 93 Respiratory Rate 16 18 Blood Pressure 133/66 122/76 Pulse Oximetry 95 97 Oxygen Delivery Method Room Air Room Air BMI result Body Mass Index 39.8 Labs 09/05/23 07:16 Medications Medications Current Medications Acetaminophen (Acetaminophen 325 Mg Tablet) 650 mg PO Q6H PRN PRN Reason: Headache/Pain Mild Scale (1-3) Last Admin: 09/01/23 10:25 Dose: 650 mg Al Hydroxide/Mg Hydroxide (Magnesium Hydrox/Alum Hydrox 30 Ml Oral.Susp) 30 ml PO Q6H PRN PRN Reason: Heartburn/Nausea Divalproex Sodium (Divalproex Sodium 500 Mg Tablet.) 500 mg PO BID [facility] Last Admin: 09/09/23 08:27 Dose: 500 mg Donepezil HCl (Donepezil Hcl 5 Mg Tablet) 5 mg PO BEDTIME [facility] Last Admin: 09/08/23 20:55 Dose: 5 mg Gabapentin (Gabapentin 100 Mg Capsule) 200 mg PO TID [facility] Last Admin: 09/09/23 08:26 Dose: 200 mg Guaifenesin (Guaifenesin 100 Mg/5 Ml Liquid) 5 ml PO Q4H PRN PRN Reason: cough Last Admin: 09/07/23 21:21 Dose: 5 ml Hydroxyzine HCl (Hydroxyzine Hcl 25 Mg Tablet) 25 mg PO Q6H PRN PRN Reason: Anxiety Last Admin: 09/02/23 04:03 Dose: 25 mg Ketorolac Tromethamine (Ketorolac Tromethamine 15 Mg/Ml Vial) 15 mg IM Q6H PRN PRN Reason: sciatic pain Last Admin: 09/08/23 20:52 Dose: 15 mg Magnesium Hydroxide (Milk Of Magnesia 30 Ml Oral.Susp) 30 ml PO DAILY PRN PRN Reason: Constipation Melatonin (Melatonin 3 Mg Tablet) 6 mg PO BEDTIME PRN PRN Reason: insomnia Last Admin: 09/07/23 21:22 Dose: 6 mg Olanzapine (Olanzapine 2.5 Mg Tablet) 2.5 mg PO DAILY PRN PRN Reason: agitation Olanzapine (Olanzapine 10 Mg Tablet) 10 mg PO BEDTIME [facility] Last Admin: 09/08/23 20:55 Dose: 10 mg Omeprazole (Omeprazole 20 Mg Capsule.Dr) 20 mg PO DAILY [facility] Last Admin: 09/09/23 08:27 Dose: 20 mg Trazodone HCl (Trazodone Hcl 50 Mg Tablet) 50 mg PO BEDTIME MRX1 PRN PRN Reason: Insomnia Last Admin: 09/08/23 20:55 Dose: 50 mg Allergies Allergies Allergy/AdvReac Type Severity Reaction Status Date / Time No Known Allergies Allergy Verified 08/31/23 17:55 Assessment & Plan Assessment & Plan (1) Schizo-affective psychosis: Status: Acute Code(s): F25.9 - Schizoaffective disorder, unspecified Plan 58 year old female with history of sciatica, GERD, anxiety, chronic back pain and Schizoaffective disorder here with decompensation of schizoaffective disorder Plan; CV 15 min checks continue zyprexa and increase to 10mg at bedtime stop risperdal 2mg BID(pt was not taking consistently at home) hold cogentin as may not need it 09/01: no changes to current plan 09/02: stable. no changes. Team to clarify supports and dispo options 09/03 continue medications depakote level and CMP in am continue to work on discharge planning with team 09/05/23 add gabapentin for both anxiety and pain 09/05: continue current tx plan. 09/06: continue tx plan. 09/07 continue tx. toradol 15mg q6h IM. increase gabapentin 200mg po TID. d/c ibuprofen, since starting short term toradol. may benefit from aricept to slow down progression of dementia. 09/08 continue tx. d/c toradol. Reason for continued inpatient stay Substantial Risk for: inability to function Time Spent With Patient Time: Total time managing care of this patient today ____ minutes.
--- NOTE | 2023-09-09 13:21 | PC.NURSE ---
Patient up all morning dancing in the common tv area. Now complaining of 7/10 sciatic pain. Toradol IM offered and refused, she does not want the shot, she wants Motrin. Mili Smith NP updated. Will dc Toradol and start Motrin 400mg PO every 6 hours prn mod-severe pain.
[2023-09-09] MEDS: Ibuprofen 400 MG TABLET PO (13:50)
[2023-09-09] MEDS: Acetaminophen 325 MG TABLET 975 MG PO ×2 (14:43→20:18)
--- NOTE | 2023-09-09 14:46 | PC.NURSE ---
Patient now getting Tylenol 975mg PO TID to help control pain. Pain down to 5/10 from 7/10 after Motrin today. Patient in agreement with scheduled Tylenol.
[2023-09-09 19:35] VITALS: BP 122/58; PULSE 93; RESP 18; TEMP 36.2; O2SAT 98
[2023-09-09] MEDS: OLANZapine 10 MG TABLET PO (20:18)
[2023-09-09] MEDS: Donepezil HCl 5 MG TABLET PO (20:18)
[2023-09-10 08:00] VITALS: BP 126/58; PULSE 90; RESP 18; TEMP 36.1; O2SAT 97
[2023-09-10] MEDS: Ibuprofen 400 MG TABLET PO ×2 (08:28→18:51)
[2023-09-10] MEDS: Gabapentin 100 MG CAPSULE 200 MG PO ×3 (08:29→21:16)
[2023-09-10] MEDS: Divalproex Sodium 500 MG TABLET.DR PO ×2 (08:30→21:16)
--- NOTE | 2023-09-10 13:48 | P.PNPSI_ITS ---
Subjective Subjective Date of Service: 09/10/23 Reason For Visit: decompensation Subjective Notes: Conditional Voluntary Interim History: Pt sleeping through the night. She has edema LE. She denies SI/HI. No psychosis. edema may be worse with gabapentin. she reports jackie stocking can only use at night as she can't tolerate them. pt adviced to elevate feet during the day. she is visible, dancing, smiling. Review of Systems Review of Systems Unremarkable Yes all other systems are reviewed and are negative Constitutional: Reports as per HPI Eyes: Reports as per HPI Reports as per HPI Cardiovascular: Reports as per HPI Respiratory: Reports as per HPI Gastrointestinal: Reports as per HPI Musculoskeletal: Reports as per HPI Skin/Breast: Reports as per HPI Reports as per HPI Psychiatric: Reports as per HPI Endocrine: Reports as per HPI Hematologic/Lymphatic: Reports as per HPI Allergic/Immunologic: Reports as per HPI Mental Status Exam Mental Status Exam Patient Appearance: Well Grooomed and Appropriate Patient Orientation: Person, Time and Situation Level of Consciousness: Awake Patient Behavior: Appropriate and Good Eye Contact Mood Description: Calm Affect Description: Calm Patient Cognition Impaired: No Ability to Follow Directions: Good Speech Pattern: Clear Memory Description: Intact Diagnostics Vital Signs (24Hr): Vital Signs - 24 hr 09/09/23 19:35 09/10/23 08:00 Temperature 97.2 F 97.0 F Pulse Rate 93 90 Respiratory Rate 18 18 Blood Pressure 122/58 L 126/58 L Pulse Oximetry 98 97 Oxygen Delivery Method Room Air Room Air BMI result Body Mass Index 39.8 Labs 09/05/23 07:16 Medications Medications Current Medications Acetaminophen (Acetaminophen 325 Mg Tablet) 975 mg PO TID [facility] Last Admin: 09/10/23 08:30 Dose: Not Given Al Hydroxide/Mg Hydroxide (Magnesium Hydrox/Alum Hydrox 30 Ml Oral.Susp) 30 ml PO Q6H PRN PRN Reason: Heartburn/Nausea Divalproex Sodium (Divalproex Sodium 500 Mg Tablet.) 500 mg PO BID [facility] Last Admin: 09/10/23 08:30 Dose: 500 mg Donepezil HCl (Donepezil Hcl 5 Mg Tablet) 5 mg PO BEDTIME [facility] Last Admin: 09/09/23 20:18 Dose: 5 mg Gabapentin (Gabapentin 100 Mg Capsule) 200 mg PO TID [facility] Last Admin: 09/10/23 08:29 Dose: 200 mg Guaifenesin (Guaifenesin 100 Mg/5 Ml Liquid) 5 ml PO Q4H PRN PRN Reason: cough Last Admin: 09/07/23 21:21 Dose: 5 ml Hydroxyzine HCl (Hydroxyzine Hcl 25 Mg Tablet) 25 mg PO Q6H PRN PRN Reason: Anxiety Last Admin: 09/02/23 04:03 Dose: 25 mg Ibuprofen (Ibuprofen 400 Mg Tablet) 400 mg PO Q6H PRN PRN Reason: Pain, Severe (Pain Scale 7-10) Last Admin: 09/10/23 08:28 Dose: 400 mg Magnesium Hydroxide (Milk Of Magnesia 30 Ml Oral.Susp) 30 ml PO DAILY PRN PRN Reason: Constipation Melatonin (Melatonin 3 Mg Tablet) 6 mg PO BEDTIME PRN PRN Reason: insomnia Last Admin: 09/07/23 21:22 Dose: 6 mg Olanzapine (Olanzapine 2.5 Mg Tablet) 2.5 mg PO DAILY PRN PRN Reason: agitation Olanzapine (Olanzapine 10 Mg Tablet) 10 mg PO BEDTIME [facility] Last Admin: 09/09/23 20:18 Dose: 10 mg Omeprazole (Omeprazole 20 Mg Capsule.Dr) 20 mg PO DAILY [facility] Last Admin: 09/10/23 08:31 Dose: Not Given Trazodone HCl (Trazodone Hcl 50 Mg Tablet) 50 mg PO BEDTIME MRX1 PRN PRN Reason: Insomnia Last Admin: 09/08/23 20:55 Dose: 50 mg Allergies Allergies Allergy/AdvReac Type Severity Reaction Status Date / Time No Known Allergies Allergy Verified 08/31/23 17:55 Assessment & Plan Assessment & Plan (1) Schizo-affective psychosis: Status: Acute Code(s): F25.9 - Schizoaffective disorder, unspecified Plan 58 year old female with history of sciatica, GERD, anxiety, chronic back pain and Schizoaffective disorder here with decompensation of schizoaffective disorder Plan; CV 15 min checks continue zyprexa and increase to 10mg at bedtime stop risperdal 2mg BID(pt was not taking consistently at home) hold cogentin as may not need it 09/01: no changes to current plan 09/02: stable. no changes. Team to clarify supports and dispo options 09/03 continue medications depakote level and CMP in am continue to work on discharge planning with team 09/05/23 add gabapentin for both anxiety and pain 09/05: continue current tx plan. 09/06: continue tx plan. 09/07 continue tx. toradol 15mg q6h IM. increase gabapentin 200mg po TID. d/c ibuprofen, since starting short term toradol. may benefit from aricept to slow down progression of dementia. 09/08 dc toradol- helped but cause pain at injection site. 09/09 continue tx. Reason for continued inpatient stay Substantial Risk for: inability to function Time Spent With Patient Time: Total time managing care of this patient today ____ minutes.
[2023-09-10] MEDS: Acetaminophen 325 MG TABLET 975 MG PO ×2 (14:51→21:16)
--- NOTE | 2023-09-10 16:36 | PC.NURSE ---
TEDS ordered today but held until tomorrow because patient has been up all day.
[2023-09-10] MEDS: traZODone HCL 50 MG TABLET PO (21:16)
[2023-09-10] MEDS: OLANZapine 10 MG TABLET PO (21:16)
[2023-09-10] MEDS: Donepezil HCl 5 MG TABLET PO (21:16)
[2023-09-10 21:36] VITALS: BP 128/58; PULSE 88; RESP 18; TEMP 36.2; O2SAT 99
[2023-09-11 06:00] VITALS: BP 136/68; PULSE 93; RESP 18; TEMP 36.6; O2SAT 98
[2023-09-11] MEDS: Acetaminophen 325 MG TABLET 975 MG PO ×3 (08:20→21:13)
[2023-09-11] MEDS: Omeprazole 20 MG CAPSULE.DR PO (08:21)
[2023-09-11] MEDS: Divalproex Sodium 500 MG TABLET.DR PO ×2 (08:21→21:19)
[2023-09-11] MEDS: Gabapentin 100 MG CAPSULE 200 MG PO ×3 (08:21→21:19)
--- NOTE | 2023-09-11 16:20 | HO.PSYCHPN ---
Subjective Subjective Date of Service: 09/11/23 Reason For Visit: decompensation Subjective Notes: Conditional Voluntary Interim History: Pt slept through the night. She is somewhat tearful reports that she wants to go home soon. She reports peer took her clothes. She also reports she was mistreated by staff over the weekend, which is not the case. She states they called me bitch which again this telegraphic typewriter mechanic was here on the weekend and there was no incident with staff, therefore, wonder if this is mor paranoid delusions. This telegraphic typewriter mechanic called her daughter- Kim- explained dx of dementia, medication changes and referrals. Plan for d/c this week, possible monday. Diagnostics Vital Signs (24Hr): Vital Signs - 24 hr 09/10/23 21:36 09/11/23 06:00 Temperature 97.1 F 97.9 F Pulse Rate 88 93 Respiratory Rate 18 18 Blood Pressure 128/58 L 136/68 Pulse Oximetry 99 98 Oxygen Delivery Method Room Air Room Air BMI result Body Mass Index 39.8 Labs 09/05/23 07:16 Medications Medications Current Medications Acetaminophen (Acetaminophen 325 Mg Tablet) 975 mg PO TID [facility] Last Admin: 09/11/23 15:20 Dose: 975 mg Al Hydroxide/Mg Hydroxide (Magnesium Hydrox/Alum Hydrox 30 Ml Oral.Susp) 30 ml PO Q6H PRN PRN Reason: Heartburn/Nausea Divalproex Sodium (Divalproex Sodium 500 Mg Tablet.Dr) 500 mg PO BID [facility] Last Admin: 09/11/23 08:21 Dose: 500 mg Donepezil HCl (Donepezil Hcl 5 Mg Tablet) 5 mg PO BEDTIME [facility] Last Admin: 09/10/23 21:16 Dose: 5 mg Gabapentin (Gabapentin 100 Mg Capsule) 200 mg PO TID [facility] Last Admin: 09/11/23 15:20 Dose: 200 mg Guaifenesin (Guaifenesin 100 Mg/5 Ml Liquid) 5 ml PO Q4H PRN PRN Reason: cough Last Admin: 09/07/23 21:21 Dose: 5 ml Hydroxyzine HCl (Hydroxyzine Hcl 25 Mg Tablet) 25 mg PO Q6H PRN PRN Reason: Anxiety Last Admin: 09/02/23 04:03 Dose: 25 mg Ibuprofen (Ibuprofen 400 Mg Tablet) 400 mg PO Q6H PRN PRN Reason: Pain, Severe (Pain Scale 7-10) Last Admin: 09/10/23 18:51 Dose: 400 mg Magnesium Hydroxide (Milk Of Magnesia 30 Ml Oral.Susp) 30 ml PO DAILY PRN PRN Reason: Constipation Melatonin (Melatonin 3 Mg Tablet) 6 mg PO BEDTIME PRN PRN Reason: insomnia Last Admin: 09/07/23 21:22 Dose: 6 mg Olanzapine (Olanzapine 2.5 Mg Tablet) 2.5 mg PO DAILY PRN PRN Reason: agitation Olanzapine (Olanzapine 10 Mg Tablet) 10 mg PO BEDTIME [facility] Last Admin: 09/10/23 21:16 Dose: 10 mg Omeprazole (Omeprazole 20 Mg Capsule.Dr) 20 mg PO DAILY [facility] Last Admin: 09/11/23 08:21 Dose: 20 mg Trazodone HCl (Trazodone Hcl 50 Mg Tablet) 50 mg PO BEDTIME MRX1 PRN PRN Reason: Insomnia Last Admin: 09/10/23 21:16 Dose: 50 mg Allergies Allergies Allergy/AdvReac Type Severity Reaction Status Date / Time No Known Allergies Allergy Verified 08/31/23 17:55 Assessment & Plan Assessment & Plan (1) Major neurocognitive disorder: Status: Acute Code(s): F03.90 - Unspecified dementia, unspecified severity, without behavioral disturbance, psychotic disturbance, mood disturbance, and anxiety Plan 58 year old female with history of sciatica, GERD, anxiety, chronic back pain and Schizoaffective disorder here with decompensation of schizoaffective disorder Plan; CV 15 min checks continue zyprexa and increase to 10mg at bedtime stop risperdal 2mg BID(pt was not taking consistently at home) hold cogentin as may not need it 09/01: no changes to current plan 09/02: stable. no changes. Team to clarify supports and dispo options 09/03 continue medications depakote level and CMP in am continue to work on discharge planning with team 09/05/23 add gabapentin for both anxiety and pain 09/05: continue current tx plan. 09/06: continue tx plan. 09/07 continue tx. toradol 15mg q6h IM. increase gabapentin 200mg po TID. d/c ibuprofen, since starting short term toradol. may benefit from aricept to slow down progression of dementia. 09/08 dc toradol- helped but cause pain at injection site. 09/09 continue tx. 09/10 increase olanzapine to 15mg po qhs. Reason for continued inpatient stay Substantial Risk for: inability to function Time Spent With Patient Time: Total time managing care of this patient today ____ minutes.
[2023-09-11 18:00] VITALS: BP 116/59; PULSE 87; RESP 18; TEMP 35.7; O2SAT 98
[2023-09-11] MEDS: OLANZapine 10 MG TABLET PO (21:18)
[2023-09-11] MEDS: traZODone HCL 50 MG TABLET PO (21:18)
[2023-09-11] MEDS: Melatonin 3 MG TABLET 6 MG PO (21:19)
[2023-09-11] MEDS: Donepezil HCl 5 MG TABLET PO (21:19)
[2023-09-12 08:00] VITALS: BP 135/71; PULSE 84; RESP 18; TEMP 36.2; O2SAT 97
[2023-09-12] MEDS: Gabapentin 100 MG CAPSULE 200 MG PO ×3 (08:48→21:15)
[2023-09-12] MEDS: Acetaminophen 325 MG TABLET 975 MG PO ×3 (08:48→21:14)
[2023-09-12] MEDS: Divalproex Sodium 500 MG TABLET.DR PO ×2 (08:48→21:15)
[2023-09-12] MEDS: Omeprazole 20 MG CAPSULE.DR PO (08:48)
--- NOTE | 2023-09-12 10:15 | HO.PSYCHPN ---
Subjective Subjective Date of Service: 09/12/23 Reason For Visit: decompensation Subjective Notes: Conditional Voluntary Interim History: Pt slept through the night. She reports staff at night were laughing about her and talking about her. She denies SI/HI. Some residual paranoid, but less agitation. She has been visible on the unit, social with select peers. No behavioral concerns. plan for d/c tomorrow. Review of Systems Review of Systems Unremarkable Yes all other systems are reviewed and are negative Constitutional: Reports as per HPI Eyes: Reports as per HPI Reports as per HPI Cardiovascular: Reports as per HPI Respiratory: Reports as per HPI Gastrointestinal: Reports as per HPI Musculoskeletal: Reports as per HPI Skin/Breast: Reports as per HPI Reports as per HPI Psychiatric: Reports as per HPI Endocrine: Reports as per HPI Hematologic/Lymphatic: Reports as per HPI Allergic/Immunologic: Reports as per HPI Mental Status Exam Mental Status Exam Patient Appearance: Well Grooomed and Appropriate Patient Orientation: Person, Time and Situation Level of Consciousness: Awake Patient Behavior: Appropriate and Good Eye Contact Mood Description: Calm Affect Description: Calm Patient Cognition Impaired: No Ability to Follow Directions: Good Speech Pattern: Clear Memory Description: Intact Diagnostics Vital Signs (24Hr): Vital Signs - 24 hr 09/11/23 18:00 09/12/23 08:00 Temperature 96.3 F L 97.2 F Pulse Rate 87 84 Respiratory Rate 18 18 Blood Pressure 116/59 L 135/71 Pulse Oximetry 98 97 Oxygen Delivery Method Room Air Room Air BMI result Body Mass Index 39.8 Labs 09/05/23 07:16 Medications Medications Current Medications Acetaminophen (Acetaminophen 325 Mg Tablet) 975 mg PO TID [facility] Last Admin: 09/12/23 08:48 Dose: 975 mg Al Hydroxide/Mg Hydroxide (Magnesium Hydrox/Alum Hydrox 30 Ml Oral.Susp) 30 ml PO Q6H PRN PRN Reason: Heartburn/Nausea Divalproex Sodium (Divalproex Sodium 500 Mg Tablet.) 500 mg PO BID [facility] Last Admin: 09/12/23 08:48 Dose: 500 mg Donepezil HCl (Donepezil Hcl 5 Mg Tablet) 5 mg PO BEDTIME [facility] Last Admin: 09/11/23 21:19 Dose: 5 mg Gabapentin (Gabapentin 100 Mg Capsule) 200 mg PO TID [facility] Last Admin: 09/12/23 08:48 Dose: 200 mg Guaifenesin (Guaifenesin 100 Mg/5 Ml Liquid) 5 ml PO Q4H PRN PRN Reason: cough Last Admin: 09/07/23 21:21 Dose: 5 ml Hydroxyzine HCl (Hydroxyzine Hcl 25 Mg Tablet) 25 mg PO Q6H PRN PRN Reason: Anxiety Last Admin: 09/02/23 04:03 Dose: 25 mg Ibuprofen (Ibuprofen 400 Mg Tablet) 400 mg PO Q6H PRN PRN Reason: Pain, Severe (Pain Scale 7-10) Last Admin: 09/10/23 18:51 Dose: 400 mg Magnesium Hydroxide (Milk Of Magnesia 30 Ml Oral.Susp) 30 ml PO DAILY PRN PRN Reason: Constipation Melatonin (Melatonin 3 Mg Tablet) 6 mg PO BEDTIME PRN PRN Reason: insomnia Last Admin: 09/11/23 21:19 Dose: 6 mg Olanzapine (Olanzapine 2.5 Mg Tablet) 2.5 mg PO DAILY PRN PRN Reason: agitation Olanzapine (Olanzapine 7.5 Mg Tablet) 15 mg PO BEDTIME [facility] Omeprazole (Omeprazole 20 Mg Capsule.Dr) 20 mg PO DAILY [facility] Last Admin: 09/12/23 08:48 Dose: 20 mg Trazodone HCl (Trazodone Hcl 50 Mg Tablet) 50 mg PO BEDTIME MRX1 PRN PRN Reason: Insomnia Last Admin: 09/11/23 21:18 Dose: 50 mg Allergies Allergies Allergy/AdvReac Type Severity Reaction Status Date / Time No Known Allergies Allergy Verified 08/31/23 17:55 Assessment & Plan Assessment & Plan (1) Major neurocognitive disorder: Status: Acute Code(s): F03.90 - Unspecified dementia, unspecified severity, without behavioral disturbance, psychotic disturbance, mood disturbance, and anxiety Plan 58 year old female with history of sciatica, GERD, anxiety, chronic back pain and Schizoaffective disorder here with decompensation of schizoaffective disorder Plan; CV 15 min checks continue zyprexa and increase to 10mg at bedtime stop risperdal 2mg BID(pt was not taking consistently at home) hold cogentin as may not need it 09/01: no changes to current plan 09/02: stable. no changes. Team to clarify supports and dispo options 09/03 continue medications depakote level and CMP in am continue to work on discharge planning with team 09/05/23 add gabapentin for both anxiety and pain 09/05: continue current tx plan. 09/06: continue tx plan. 09/07 continue tx. toradol 15mg q6h IM. increase gabapentin 200mg po TID. d/c ibuprofen, since starting short term toradol. may benefit from aricept to slow down progression of dementia. 09/08 dc toradol- helped but cause pain at injection site. 09/09 continue tx. 09/10 increase olanzapine to 15mg po qhs. Reason for continued inpatient stay Substantial Risk for: inability to function Time Spent With Patient Time: Total time managing care of this patient today ____ minutes.
--- NOTE | 2023-09-12 12:11 | PC.NURSE ---
Pt refused compression therapy, provider Haven Arango notified.
[2023-09-12 18:00] VITALS: BP 131/63; PULSE 88; RESP 18; TEMP 36.1; O2SAT 100
[2023-09-12] MEDS: Donepezil HCl 5 MG TABLET PO (21:15)
[2023-09-12] MEDS: OLANZapine 7.5 MG TABLET 15 MG PO (21:15)
[2023-09-13 08:00] VITALS: BP 135/63; PULSE 86; RESP 18; TEMP 36.6; O2SAT 95
[2023-09-13] MEDS: Acetaminophen 325 MG TABLET 975 MG PO (08:19)
[2023-09-13] MEDS: Divalproex Sodium 500 MG TABLET.DR PO (08:19)
[2023-09-13] MEDS: Omeprazole 20 MG CAPSULE.DR PO (08:20)
[2023-09-13] MEDS: Gabapentin 100 MG CAPSULE 200 MG PO (08:20)
--- NOTE | 2023-09-13 10:08 | P.DS_ITS ---
DS: Providers Provider Date of Service: 09/13/23 Date of admission: 08/31/23 17:18 Date of discharge: 09/13/23 Primary care physician: None Physician Consults: 08/31/23 17:56 Consult to Hospitalist Routine Comment: Consulting Provider: Hospitalist Reason For Exam: admitting physical Discharging clinician: Shira Smith DS: Diagnosis Discharge Diagnosis (1) Major neurocognitive disorder: Status: Acute DS: Medications Discharge Medications Home Medications: Home Medications Medication Instructions Recorded Confirmed lidocaine 4 % topical patch 1 patch topical QAM 09/01/23 09/01/23 Previous Rx's Medication Instructions Recorded acetaminophen 500 mg capsule 1,000 mg (2 x 500 mg) PO TID #90 09/13/23 caps divalproex 500 mg tablet,delayed 500 mg PO BID #60 tabs 09/13/23 release donepezil 5 mg tablet 5 mg PO BEDTIME #30 tabs 09/13/23 gabapentin 100 mg capsule 200 mg (2 x 100 mg) PO TID #180 09/13/23 caps melatonin 3 mg tablet 6 mg (2 x 3 mg) PO BEDTIME PRN 09/13/23 insomnia #60 tabs olanzapine 15 mg tablet 15 mg PO BEDTIME #30 tabs 09/13/23 omeprazole 20 mg capsule,delayed 20 mg PO DAILY #30 caps 09/13/23 release trazodone 50 mg tablet 50 mg PO BEDTIME PRN Insomnia #30 09/13/23 tabs Mental Status Exam Mental Status Exam Narrative: Appearance: wearing casual clothing, good hygiene, in NAD behavior: cooperative Psychomotor: no agitation or retardation noted Speech: clear, normal rate/rhythm/volume, spontaneous TP: linear TC: looking forward to return home Mood: good Affect: congruent SI: none HI: none AH/VH: none Delusions: residual paranoid ideas Insight/judgment: poor x 2. Memory/cog: alert, oriented x 3. impairments in executive function, recall, visuo spatial. 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 patient seen by crisis for outburst and disorganized behavior; Pt seen in [facility] by crisis. Pt reportedly stopped her medications after she ran out of them and did not get them refilled; She reports an argument with her daughter and son in law. Her family reported that she was aggressive towards daughter and then found wandering and disorganized. Pt has outpatient services at [facility]. Patient states that she is depressed and anxious. She denies hearing voices. Patient tells me that she lives with a daughter. Many people live in the house her daughter and daughter's , her 19 yo grandson with his girlfriend and new baby. Patient states that it is always loud in the house and that this frightened and frustrates her. She is very easily startled and can not fall asleep easily because of all the noise. She feels she is she needs help around the house and her daughter is not willing to help her. Patient states that her daughter and daughter's argue and fight frequently. Patient states that she gets very frustrated with her daughter and is afraid that she will hit her. She does not want to live with her daughter any longer. She denies suicidal ideation she denies homicidal ideation. She does not appear to be responding to internal stimuli. She states that she needs medication to stay calm and to be able to sleep. She denies that she hit her daughter. Past Psychiatric History:she was IPLOC at [facility] Jun 2023, at [facility] on 08/14/23 for SI and then [facility] from 08/15/23 to 08/24/23. HOSPITAL COURSE On the unit, pt was admitted on a CV and placed on 15 minutes checks for safety. Pt presented as guarded, somewhat suspicious towards staff, especially in the evening. She had cognitive and memory assessment which showed moderate impairments in recall, executive function, visuo spatial skills, pattern suggestive of vascular type of dementia. After discussing risks. benefits and alternative treatment options, pt was continued on depakote. She was switched from risperidone to olanzapine which she tolerated well and was titrated to 15mg po qhs. Her affect gradually presented as much less suspicious, less guarded. She was increasingly more visible on the unit and social with select peers. She did not show any signs of aggression towards self or others. We had family meeting to discuss finding in terms of memory impairments and need for supports. She was started on aricept to help slow down progression of dementing process, although often use for AD, it has shown some benefit in vascular dementia. In terms of medical interventions, pt was started on gabapentin for sciatic pain with good effect. Tylenol was scheduled for arthritis. Status at Discharge Cognitive/behavioral status at discharge: Pt with bright, non labile affect. No SI/HI. Some residual paranoid mostly in evenings. No aggression towards self or others. No overt signs of psychosis. No aggression towards self or others. Functional status at discharge: independent ambulation Overall status at discharge: patient is progressing back to baseline Time Spent with Patient Time attestation: Total time managing care of this patient today ____ minutes. Discharge Plan Discharge Anticipated Discharge Date/Time: 09/13/23 09:58 Patient Disposition: Home, Self-Care Discharge Diagnosis: Major Neurocognitive disorder Referrals: Dr. Raúl MD - Psych [Other] - 09/19/23 5:00 pm (Appointment: 09/19/2023 @ 5pm ) Araceli Valles - Therapist [Other] - 10/05/23 9:45 am (Appointment: 10/05/2023 @ 9:45am ) [facility] [Other] - 1 Week (Referral was sent; patient will be contacted tomorrow 09/13/2023, after discharge, by the program. ) Physician,None [Primary Care Provider] - 1 Week (PCP through [facility]. Office will call patient with appointment date upon discharge. ) Discharge Medications: New donepezil 5 mg Tablet 5 mg PO BEDTIME Qty: 30 0RF divalproex 500 mg Tablet,Delayed Release (Dr/Ec) 500 mg PO BID Qty: 60 0RF olanzapine 15 mg tablet 15 mg PO BEDTIME Qty: 30 0RF acetaminophen 500 mg capsule 1,000 mg PO TID Qty: 90 0RF gabapentin 100 mg Capsule 200 mg PO TID Qty: 180 0RF trazodone 50 mg Tablet 50 mg PO BEDTIME PRN (Reason: Insomnia) Qty: 30 0RF melatonin 3 mg Tablet 6 mg PO BEDTIME PRN (Reason: insomnia) Qty: 60 0RF omeprazole 20 mg Capsule,Delayed Release(Dr/Ec) 20 mg PO DAILY Qty: 30 0RF Continued lidocaine 4 % Adhesive Patch,Medicated 1 patch TOPICAL QAM Discontinued acetaminophen 325 mg tablet 975 mg PO TID PRN (Reason: pain) melatonin 3 mg tablet 6 mg PO BEDTIME PRN (Reason: insomnia) divalproex 500 mg tablet,delayed release (DR/EC) 500 mg PO BID olanzapine 7.5 mg tablet 7.5 mg PO QPM pantoprazole 40 mg tablet,delayed release (DR/EC) 40 mg PO DAILY ibuprofen 400 mg tablet 400 mg PO Q6H PRN (Reason: pain) benztropine 1 mg Tablet 1 mg PO DAILY risperidone 2 mg tablet 2 mg PO DAILY Discharge Orders: Discharge Order (Routine); Ordered 09/13/23 Ordered By: Shira Smith Diet: Diabetic diet Activity on Discharge: As tolerated Stand Alone Forms: Patient Portal Discharge page Care Plan Goals: 1. Maintain mood 2. No SI/HI 3. Less paranoid delusions 4. No aggression towards self or others. Health Concerns: Follow up with PCP Plan of Treatment: 1. Take medications as prescribed 2. Go to nearest ED or call 911 in event of emergency Assessment: pt with brighter, non labile affect. Less paranoid delusions. No SI/HI. No aggression towards self or others. Pt sleeping and eating well.
== END 2023-09-13 11:30 | disposition home or self-care (01) | DRG 885 ==
PROVIDERS: Clinical Nurse Specialist Psychiatric/Mental Health; Psychiatry & Neurology Psychiatry; Admitting Provider Psychiatry & Neurology Psychiatry; Visit Provider Psychiatry & Neurology Psychiatry
DX: F25.9 Schizoaffective disorder, unspecified (principal); K21.9 Gastro-esophageal reflux disease without esophagitis; Z79.899 Other long term (current) drug therapy
CPT/HCPCS: 36415; 80053; 80061; 80164; 83036; J1885

== ENCOUNTER → 2023-08-31 17:18 | Outpatient (BNV) | payer MEDICARE, MEDICAID, SELFPAY | PROVIDERS: Admitting Provider Psychiatry & Neurology Psychiatry; Visit Provider Clinical Nurse Specialist Psychiatric/Mental Health | DX: F03.90 Unspecified dementia, unspecified severity, without behavioral disturbance, psychotic disturbance, mood disturbance, and anxiety (principal) | CPT/HCPCS: 90792; 99231; 99232; 99238 ==

== ENCOUNTER → 2023-08-31 17:18 | Outpatient (BNV) | payer MEDICARE, MEDICAID, SELFPAY | PROVIDERS: Admitting Provider Psychiatry & Neurology Psychiatry; Visit Provider Internal Medicine | DX: K21.9 Gastro-esophageal reflux disease without esophagitis (principal); M54.30 Sciatica, unspecified side | CPT/HCPCS: 99221 ==

== ENCOUNTER 2024-05-28 18:21 | Emergency (ER) | payer MEDICARE, MEDICAID, SELFPAY ==
--- NOTE | ~2024-05-28 | XR_ITS ---
EXAMINATION: XR CHEST CLINICAL INFORMATION: Shortness of breath COMPARISON: None available. TECHNIQUE: 2 views of the chest were obtained. FINDINGS: No significant abnormality is noted involving the heart, lungs, mediastinum, bony thorax or soft tissues. XR/XR chest 2V IMPRESSION: Unremarkable examination. Electronically signed by: Joseluis Heath MD 05/28/2024 10:03 PM [facility]
[2024-05-28 19:04] VITALS: BP 152/80; PULSE 128; RESP 20; TEMP 37.4; O2SAT 95; BMI 41.2
--- NOTE | 2024-05-28 19:10 | ECG_ITS ---
Test Reason : UPPER RESP Blood Pressure : / mmHG Vent. Rate : 126 BPM Atrial Rate : 126 BPM P-R Int : 156 ms QRS Dur : 068 ms QT Int : 296 ms P-R-T Axes : 048 022 022 degrees QTc Int : 428 ms Sinus tachycardia Cannot rule out Anterior infarct , age undetermined Abnormal ECG No previous ECGs available Referred By: Daniela Olivas Electronically Signed By:Manjinder Perkins
[2024-05-28 19:43] LABS: MANUAL DIFF FLAG NO
--- NOTE | 2024-05-28 19:43 | ED.GENADULT ---
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 Jordin Lepe HPI narrative: 58-year-old female with a history of neurocognitive disorder, schizoaffective disorder, presents with viral syndrome x 3 days. Patient complains of a cough which is productive of brown sputum. She was had myalgias and arthralgias. She had headache, subjective fever and chills. She denied shortness of breath or dyspnea on exertion. She denied nausea, vomiting or diarrhea. Related Data Home Medications ?Medication ?Instructions ?Recorded ?Confirmed lidocaine 4 % topical patch 1 patch topical QAM 09/01/23 09/01/23 Previous Rx's ?Medication ?Instructions ?Recorded acetaminophen 500 mg capsule 1,000 mg (2 x 500 mg) PO TID #90 09/13/23 caps divalproex 500 mg tablet,delayed 500 mg PO BID #60 tabs 09/13/23 release donepezil 5 mg tablet 5 mg PO BEDTIME #30 tabs 09/13/23 gabapentin 100 mg capsule 200 mg (2 x 100 mg) PO TID #180 09/13/23 caps melatonin 3 mg tablet 6 mg (2 x 3 mg) PO BEDTIME PRN 09/13/23 insomnia #60 tabs olanzapine 15 mg tablet 15 mg PO BEDTIME #30 tabs 09/13/23 omeprazole 20 mg capsule,delayed 20 mg PO DAILY #30 caps 09/13/23 release trazodone 50 mg tablet 50 mg PO BEDTIME PRN Insomnia #30 09/13/23 tabs acetaminophen 500 mg tablet 1,000 mg (2 x 500 mg) PO Q6H PRN 05/28/24 (Tylenol Extra Strength) fever or pain #20 tabs albuterol sulfate 90 mcg/actuation 2 puff inhalation QID PRN 05/28/24 aerosol inhaler (Ventolin HFA) shortness of breath or wheezing #8.5 grams ibuprofen 400 mg tablet 400 mg PO TID PRN fever or pain 05/28/24 #30 tabs Allergies Allergy/AdvReac Type Severity Reaction Status Date / Time No Known Allergies Allergy Verified 05/28/24 19:06 Review of Systems Review of Systems: Yes all other systems are reviewed and are negative [facility] Past Medical History Medical History (Updated 06/05/24 @ 00:03 by Christopher Tom) Sciatica GERD (gastroesophageal reflux disease) Social History Social History Household Members: Family and Children Housing: Apartment Do you presently have visiting nurse or other home services: No Patient Tobacco Use Status: Never used Tobacco e-Cigarette/Vaping Use: Never Used Second Hand Smoke Exposure: Yes Advance Directives: No Advance Directives Information Provided: No Do you have a plan to hurt others: No Plan service: No Sexual orientation: Straight/Heterosexual Physical Exam ED Vital Signs: Vital Signs - 24 hr 05/28/24 19:04 05/28/24 21:38 05/28/24 22:02 Temperature 99.4 F 99 F 99 F Pulse Rate 128 H 118 H 118 H Respiratory Rate 20 20 20 Blood Pressure 152/80 H 154/78 H 154/78 H Pulse Oximetry 95 96 97 Oxygen Delivery Method Room Air Room Air Room Air BMI result Body Mass Index 41.2 Vital signs revealed an elevated heart rate of 128 and elevated blood pressure of 152/80 Exam: General: Awake, alert in no distress Head: Normocephalic, atraumatic EENT: PERRL, Lids normal, sclera normal, conjunctiva normal, nose normal , ears normal, throat without erythema or exudates Neck: Supple, no adenopathy Lung: breath sounds symmetric, no rales or rhonchi. Patient does have diffuse wheezing Chest: symmetric movement, nontender Heart: regular rate and rhythm, normal S1, S2 no murmurs or rubs Abdomen: soft, non-tender, nondistended, normal bowel sounds Back: no vertebral tenderness, no CVAT Extremities: no deformities, moves all extremities symmetrically Neuro: Awake, alert, oriented, normal speech, cranial nerves intact, moves all extremities symmetrically Psych: Pleasant, cooperative Course Course Course Narrative: This is a rapid medical exam performed by Daniela Olivas PA-C. 58-year-old female with a history of neurocognitive disorder, schizoaffective disorder, presents with viral syndrome x 3 daysa. . Associated productive cough expelling discolored sputum, sore throat, headache, nasal congestion and generalized body aches. Patient has been using [id number] cough remedies for ?day and night?. She is not sure of what and gradients are in the medicine. On exam, the patient has bibasilar coarse breath sounds, active rhinorrhea. Her cough is wet when she coughs. We will be obtaining basic labs, a viral panel and chest x-ray. To note, the patient is tachycardic, we will obtain an EKG. This could be induced from the medication she is consuming. The patient is hemodynamically stable she can return to the waiting room pending her full medical assessment. Medications Administered Discontinued Medications Generic Name Dose Route Start Last Admin Trade Name Freq PRN Reason Stop Dose Admin Albuterol Sulfate 2 puff 05/28/24 22:49 05/28/24 23:12 Albuterol Sulfate 90 Mcg 8 Gm Inhaler INHALE 05/28/24 22:50 2 puff ONCE ONE Administration Ibuprofen 400 mg 05/28/24 22:49 05/28/24 23:07 Ibuprofen 400 Mg Tablet PO 05/28/24 22:50 400 mg ONCE STA Administration Medical Decision Making Medical Decision Making MDM Narrative: 58-year-old female with a history of neurocognitive disorder, schizoaffective disorder, presents with viral syndrome x 3 days. Patient complains of a cough which is productive of brown sputum. She was had myalgias and arthralgias. She had headache, subjective fever and chills. She denied shortness of breath or dyspnea on exertion. She denied nausea, vomiting or diarrhea. Vital signs revealed elevated heart rate and elevated blood pressure. Lung exam revealed diffuse wheezing with no rales or rhonchi. Differential diagnosis: ?Includes but is not limited to viral syndrome, COVID-19, influenza, RSV, bronchitis, pneumonia, electrolyte abnormalities, anemia Course: My independent interpretation patient's laboratory evaluation is as follows: CBC was normal. CMP revealed an elevated glucose of 135. COVID-19 and influenza were negative. RSV was positive. EKG was unremarkable. Chest x-ray revealed no evidence for pneumonia. Patient's symptoms and presentation are consistent with RSV bronchitis. I did discuss this with the patient the patient's daughter. Patient was treated here in the emergency department with albuterol inhaler 2 puffs with a spacer. She was also given ibuprofen 400 mg orally. She was prescribed albuterol inhaler 2 puffs 4 times a day, ibuprofen 400 mg every 6 hours as needed for pain or fever and Tylenol 1000 mg every 6 hours as needed for pain or fever. She was given printed and verbal instructions and discharged home. Admission/Observation Consideration of admission/observation: Escalation of care including admission/observation considered (Yes) Lab Data MDM Lab Attestation statement: I reviewed the patient's lab results. 05/28/24 19:38 05/28/24 19:38 Labs: Lab Results 05/28/24 Range/Units 19:38 WBC 6.2 (4.8-10.8) X10*3/uL RBC 4.59 (4.20-5.50) X10*6/uL Hgb 14.3 (12.0-16.0) g/dl Hct 43.0 (37.0-47.0) % MCV 93.7 (80.0-98.0) fL MCH 31.2 (27.0-33.0) pg MCHC 33.3 (31.0-35.0) g/dl RDW 13.1 (11.0-16.0) % Plt Count 249 (160-400) X10*3/uL MPV 10.2 (9.4-12.3) fL Immature Gran % (Auto) 0.3 (0.0-0.4) % Neut % (Auto) 57.8 (45-73) % Lymph % (Auto) 23.3 (20-40) % Greene % (Auto) 17.2 H (2-11) % Eos % (Auto) 0.8 (0-4) % Baso % (Auto) 0.6 (0-2) % Lymph # (Auto) 1.5 (1.2-4.9) X10*3/uL Greene # (Auto) 1.1 (0.1-1.2) X10*3/uL Eos # (Auto) 0.1 (0.0-0.4) X10*3/uL Baso # (Auto) 0.0 (0.0-0.2) X10*3/uL Abs Immat Gran (auto) 0.02 (0.00-0.03) X10*3/uL Absolute Neuts (auto) 3.6 (2.0-8.3) x10*3/uL Absolute Nucleated RBC 0.000 (0.0-0.012) X10*3/uL Nucleated RBC % (auto) 0.0 (0.0-0.2) /100WBC Sodium 141 (135-145) mmol/L Potassium 3.6 D (3.3-5.1) mmol/L Chloride 108 (96-108) mmol/L Carbon Dioxide 24 (22-29) mmol/L Anion Gap 13 (12-20) BUN 10 (9-16) mg/dL Creatinine 0.84 (0.5-1.4) mg/dL Estim Creat Clear Calc 76.8 Estimated GFR > 60 Random Glucose 135 H (60-115) mg/dL Calcium 9.3 (8.4-10.2) mg/dL Magnesium 2.0 (1.6-2.6) mg/dL Total Bilirubin 0.3 (0.0-1.0) mg/dL AST 23 (5-31) U/L ALT 21 (0-31) U/L Alkaline Phosphatase 102 (39-117) U/L Total Protein 7.7 (6.5-8.0) g/dL Albumin 4.0 (3.5-5.0) g/dL Influenza Type A (PCR) NEGATIVE (Negative) Influenza Type B (PCR) NEGATIVE (Negative) RSV RNA Qual (PCR) POSITIVE A (Negative) SARS-CoV-2 RNA (RT-PCR) NEGATIVE (Negative) Independent Interpretation I performed an independent interpretation of an: EKG and Plain X-Ray Interpretation: My independent interpretation patient's two view chest x-ray is as follows: No acute disease My independent interpretation of the patient's 12 EKG done at 19:22 hours is as follows: Sinus tachycardia with a rate of 126, normal CT interval, QRS duration QTC interval, no ST segment elevation, no ST segment depression, poor R-wave progression, no PACs, no PVCs, no significant T-wave abnormalities Radiology Impression Discussion of test interpretation with radiology: I have reviewed the radiologist's reading. Radiologist Impression: XR chest 2V IMPRESSION: Unremarkable examination. Electronically signed by: Joseluis Heath MD 05/28/2024 10:[address] [facility] Dictated By: Joseluis Heath MD Prescription Management I considered prescription management with: Pain Medication (Ibuprofen and Tylenol) and Other (Bronchodilator-albuterol inhaler) Discharge Plan Discharge Clinical Impression: RSV bronchitis Patient Disposition: Home, Self-Care Instructions: Respiratory Syncytial Virus (ED), Acute Bronchitis (ED) Additional Instructions: Your COVID-19 and influenza tests were negative Your RSV test was positive and this is causing your cough and wheezing. Use the albuterol inhaler with the spacer, 2 puffs every 4-6 hours as needed for shortness of breath and wheezing. Take ibuprofen 200 mg pills, 2 pills every 6 hours as needed for pain or fever. Take Tylenol (acetaminophen) 500 mg pills, 2 pills every 6 hours as needed for pain or fever. Follow-up with your doctor in 2 days. Please return to the emergency department if your symptoms get worse or if you develop any symptoms that are concerning to you. Prescriptions: New acetaminophen [Tylenol Extra Strength] 500 mg tablet 1,000 mg PO Q6H PRN (Reason: fever or pain) Qty: 20 0RF ibuprofen 400 mg tablet 400 mg PO TID PRN (Reason: fever or pain) Qty: 30 0RF albuterol sulfate [Ventolin HFA] 90 mcg/actuation HFA aerosol inhaler 2 puff inhalation QID PRN (Reason: shortness of breath or wheezing) Qty: 8.5 0RF No Action lidocaine 4 % Adhesive Patch,Medicated 1 patch TOPICAL QAM donepezil 5 mg Tablet 5 mg PO BEDTIME Qty: 30 0RF divalproex 500 mg Tablet,Delayed Release (Dr/Ec) 500 mg PO BID Qty: 60 0RF olanzapine 15 mg tablet 15 mg PO BEDTIME Qty: 30 0RF acetaminophen 500 mg capsule 1,000 mg PO TID Qty: 90 0RF gabapentin 100 mg Capsule 200 mg PO TID Qty: 180 0RF trazodone 50 mg Tablet 50 mg PO BEDTIME PRN (Reason: Insomnia) Qty: 30 0RF melatonin 3 mg Tablet 6 mg PO BEDTIME PRN (Reason: insomnia) Qty: 60 0RF omeprazole 20 mg Capsule,Delayed Release(Dr/Ec) 20 mg PO DAILY Qty: 30 0RF Interventions: ED Discharge Assessment Last Done: 05/28/24 23:12 Discharge Date/Time: 05/28/24 23:14 Print Language: Anguillan
[2024-05-28 19:44] LABS: Basophils Percent Auto 0.6 % (0-2); Eosinophils Absolute Auto 0.1 X10*3/uL (0.0-0.4); Eosinophils Percent Auto 0.8 % (0-4); Hemoglobin 14.3 g/dl (12.0-16.0); Imm Gran Abs Auto 0.02 X10*3/uL (0.00-0.03); Imm Gran Pct Auto 0.3 % (0.0-0.4); Lymphocytes Absolute Auto 1.5 X10*3/uL (1.2-4.9); Lymphocytes Percent Auto 23.3 % (20-40); Mean Corpuscular HGB Conc 33.3 g/dl (31.0-35.0); Mean Corpuscular Hemoglobin 31.2 pg (27.0-33.0); Mean Corpuscular Volume 93.7 fL (80.0-98.0); Mean Platelet Volume 10.2 fL (9.4-12.3); Monocytes Absolute Auto 1.1 X10*3/uL (0.1-1.2); Monocytes Percent Auto 17.2 % (2-11); Neutrophils Absolute Auto 3.6 x10*3/uL (2.0-8.3); Neutrophils Percent Auto 57.8 % (45-73); Platelet Count 249 X10*3/uL (160-400); Red Blood Count 4.59 X10*6/uL (4.20-5.50); Red Cell Distribution Width 13.1 % (11.0-16.0); White Blood Count 6.2 X10*3/uL (4.8-10.8)
[2024-05-28 20:02] LABS: Alanine Aminotransferase 21 U/L (0-31); Alkaline Phosphatase 102 U/L (39-117); Anion Gap 13 (12-20); Aspartate Amino Transferase 23 U/L (5-31); Bilirubin Total 0.3 mg/dL (0.0-1.0); Blood Urea Nitrogen 10 mg/dL (9-16); Calcium 9.3 mg/dL (8.4-10.2); Carbon Dioxide 24 mmol/L (22-29); Chloride 108 mmol/L (96-108); Creatinine Clr Calc Pharmacy 76.8; Estimated Glomerular Filt Rate > 60; Glucose Random 135 mg/dL (60-115); Potassium 3.6 mmol/L (3.3-5.1); Sodium 141 mmol/L (135-145); Total Protein 7.7 g/dL (6.5-8.0)
[2024-05-28 20:22] LABS: Influenza A PCR NEGATIVE (Negative); Influenza B PCR NEGATIVE (Negative); Resp Syncy Virus RNA Qual PCR POSITIVE (Negative); SARS COV2 PCR INHOUSE NEGATIVE (Negative)
[2024-05-28 21:38] VITALS: BP 154/78; PULSE 118; RESP 20; TEMP 37.2; O2SAT 96
[2024-05-28 22:02] VITALS: BP 154/78; PULSE 118; RESP 20; TEMP 37.2; O2SAT 97
[2024-05-28] MEDS: Ibuprofen 400 MG TABLET PO (23:07)
[2024-05-28 23:12] VITALS: BP 146/76; PULSE 106; RESP 20; TEMP 37.1; O2SAT 98
[2024-05-28] MEDS: Albuterol Sulfate 90 MCG 8 GM INHALER 2 PUFF INHALE (23:12)
== END 2024-05-28 23:14 | disposition home or self-care (01) ==
PROVIDERS: Physician Assistant Medical; Emergency Provider Emergency Medicine Emergency Medical Services
DX: J20.5 Acute bronchitis due to respiratory syncytial virus (principal); R00.0 Tachycardia, unspecified; Z79.899 Other long term (current) drug therapy; Z03.818 Encounter for observation for suspected exposure to other biological agents ruled out
CPT/HCPCS: 0241U; 36415; 71046; 80053; 83735; 85025; 93005; 99284

== ENCOUNTER → 2024-05-28 19:10 | Outpatient (BNV) | payer MEDICARE, MEDICAID, SELFPAY | PROVIDERS: Emergency Provider Emergency Medicine Emergency Medical Services; Visit Provider Internal Medicine Cardiovascular Disease | DX: R94.31 Abnormal electrocardiogram [ECG] [EKG] (principal) | CPT/HCPCS: 93010 ==